=== PATIENT | female | born 1980 | race Native Hawaiian/Other Pacific Islander ===

== ENCOUNTER 2016-07-22 15:03 | Outpatient (CLI) | payer OTHER ==
[~2016-07-22 15:03] MED LIST: WELLBUTRIN100 M1 PO
[2016-07-22 16:00] LABS: PLATELET COUNT 235 K/uL (152-353)
[2016-07-22 16:25] LABS: POTASSIUM 3.9 mmol/L (3.6-5.2); SODIUM 143 mmol/L (136-145)
== END 2016-07-22 19:24 | disposition home or self-care (01) ==
LOC: LABW 15:03
PROVIDERS: Plastic Surgery Plastic Surgery Within the Head and Neck
DX: Z01.812 Encounter for preprocedural laboratory examination (principal); Z01.818 Encounter for other preprocedural examination
CPT/HCPCS: 36415; 80048; 85027

== ENCOUNTER 2016-09-29 17:56 | Emergency (ER) | payer OTHER ==
[~2016-09-29] VITALS: Ht 177.8 cm; Wt 77.1 kg
[2016-09-29 18:05] VITALS: BP 118/82; TEMP 98
[2016-09-29 18:36] LABS: PLATELET COUNT 220 K/uL (152-353)
[2016-09-29 18:41] LABS: POTASSIUM 3.3 mmol/L (3.6-5.2); SODIUM 136 mmol/L (136-145)
[2016-09-29 19:03] LABS: PARTIAL THROMBOPLASTIN TIME 25.2 SECONDS (24.5-33.6)
== END 2016-09-30 00:46 | disposition left against medical advice (07) ==
LOC: ED 17:56
DX: R45.851 Suicidal ideations (principal); F32.89 Other specified depressive episodes; R45.850 Homicidal ideations; R00.0 Tachycardia, unspecified; Z79.899 Other long term (current) drug therapy; Z51.81 Encounter for therapeutic drug level monitoring
CPT/HCPCS: 36415; 80053; 80307; 80320; 80329; 81000; 81025; 82550; 84484; 85027; 85610; 85730; 93005; 99285; G0479

== ENCOUNTER 2019-09-17 13:02 | Outpatient (CLI) | payer OTHER | END 2019-09-17 19:12 | disposition home or self-care (01) | LOC: MRI 13:02 | DX: M54.16 Radiculopathy, lumbar region (principal); M54.12 Radiculopathy, cervical region ==